=== PATIENT | male | born 1965 | race Caucasian/White ===

== ENCOUNTER 2025-07-21 08:03 | Emergency (ER) | payer MEDICAID, OTHER ==
[~2025-07-21] VITALS: Ht 175.3 cm; Wt 80.3 kg
--- NOTE | 2025-07-21 08:14 | ED.PDOC ---
History of Present Illness HPI Comments 59-year-old male brought in by EMS presents with a chief complaint of leg burning sensation x 1 hour. Per EMS, patient endorsed sitting in "biodegradable bell cleaner or something like that" and is now reporting burning sensation to his right LLE. Patient has no signs of discoloration, rash, wounds, or lesions. 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: Driver Supervisor Medication Refill: Ran out of Medication Past Medical History PAST MEDICAL HISTORY: Denies Surgical History (Other): NECK FUSION Family History Family History: Reviewed,noncontributory to illness Social History Smoker: Non-Smoker Alcohol: Denies ETOH Use Drugs: Denies Drug Use Lives In: Home Constitutional: denies: chills, diaphoresis, fatigue, fever, malaise, sweats, weakness, others EENTM: denies: blurred vision, double vision, ear bleeding, ear discharge, ear drainage, ear pain, ear ringing, eye pain, eye redness, hearing loss, mouth pain, mouth swelling, nasal discharge, nose bleeding, nose congestion, nose pain, photophobia, tearing, throat pain, throat swelling, voice changes, others Respiratory: denies: cough, hemoptysis, orthopnea, SOB at rest, shortness of breath, SOB with excertion, stridor, wheezing, others Cardiovascular: denies: chest pain, dizzy spells, diaphoresis, Dyspnea on exertion, edema, irregular heart beat, left arm pain, lightheadedness, palpitations, PND, syncope, others Gastrointestinal: denies: abdomen distended, abdominal pain, blood streaked bowels, constipated, diarrhea, dysphagia, difficulty swallowing, hematemesis, melena, nausea, poor appetite, poor fluid intake, rectal bleeding, rectal pain, vomiting, others Genitourinary: denies: burning, dysuria, flank pain, frequency, hematuria, incontinence, penile discharge, penile sore, pain, testicle pain, testicle swelling, urgency, others Neurological: denies: dizziness, fainting, headache, left sided numbness, left sided weakness, numbness, paresthesia, pre-existing deficit, right sided numbness, right sided weakness, seizure, speech problems, tingling, tremors, weakness, others Musculoskeletal: denies: back pain, gout, joint pain, joint swelling, muscle pain, muscle stiffness, neck pain, others Integumetry: reports: others (SKIN BURNING SENSATION); denies: bruises, change in color, change in hair/nails, dryness, laceration, lesions, lumps, rash, wounds Allergic/Immunocompromised: denies: Difficulty Healing, Frequent Infections, Hives, Itching, others Hematologic/Lymphatic: denies: anemia, blood clots, easy bleeding, easy bruising, swollen glands, others Endocrine: denies: excessive hunger, excessive sweating, excessive thirst, excessive urination, flushing, intolerance to cold, intolerance to heat, unexplained weight gain, unexplained weight loss, others Psychiatric: denies: anxiety, bipolar disorder, depression, hopeless, panic disorder, schizophrenia, sleepless, suicidal, others All Other Systems: Reviewed and Negative Physical Exam General Appearance: Moderate Distress, Normal HEENT: Normal ENT Inspection, Pharynx Normal, TMs Normal Neck: Full Range of Motion, Non-Tender, Normal, Normal Inspection Respiratory: Chest Non-Tender, Lungs Clear, No Accessory Muscle Use, No Respiratory Distress, Normal Breath Sounds Cardiovascular: No Edema, No JVD, No Murmur, No Gallop, Normal Peripheral Pulses, Regular Rate/Rhythm Breast Exam: Deferred Gastrointestinal: No Organomegaly, Non Tender, No Pulsatile Mass, Normal Bowel Sounds, Soft Genitalia: Deferred Pelvic: Deferred Rectal: Deferred Extremities: No calf tenderness, Normal capillary refill, Normal inspection, Normal range of motion, Non-tender, No pedal edema Musculoskeletal : Apperance: Normal Neurologic: Alert, presales engineer II-XII nml as Tested, No Motor Deficits, Normal Affect, Normal Mood, No Sensory Deficits Cerebellar Function: Normal Reflexes: Normal Skin: Dry, Normal Color, Warm Peripheral Pulses: 3+ Radial (R), 3+ Radial (L) Lymphatic: No Adenopathy Was a procedure done? Was a procedure done?: No Differential Dx Considerations may include: Electrolyte imbalance X-Ray, Labs, Meds, VS Vital Signs Date Time Temp Pulse Resp B/P (MAP) Pulse Ox O2 Delivery O2 Flow Rate FiO2 07/21/25 09:20 98.1 83 18 107/69 (82) 98 98.1 07/21/25 08:10 98.0 95 18 116/76 99 98.0 Lab Test 07/21/25 08:24 07/21/25 08:21 07/21/25 08:18 Range/Units Sodium Level 134 L 136-145 mmol/L Potassium Level 4.9 3.5-5.1 mmol/L Chloride Level 101 98-107 mmol/L Carbon Dioxide Level 25 20-31 mmol/L Anion Gap 8 5-15 Blood Urea Nitrogen 15 9-23 mg/dL Creatinine 1.16 0.700-1.30 mg/dL Glomerular Filtration Rate Calc 73 >90 mL/min BUN/Creatinine Ratio 12.9 10.0-20.0 Serum Glucose 468 *H 74-106 mg/dL Calcium Level 9.5 8.7-10.4 mg/dL POC Glucose 451 *H 526 *H 70-106 mg/dl Current Medications Medications (Trade) Dose Ordered Sig/Imani Route Start Time Stop Time Status Last Admin Insulin Human Regular (InsuLIN R) 10 units ONCE ONCE IV 07/21/25 08:30 07/21/25 08:31 DC 07/21/25 09:18 Sodium Chloride 1,000 ml @ 1,000 mls/hr Q1H ONCE IV 07/21/25 08:30 07/21/25 09:29 DC 07/21/25 09:10 Patient alert. Muscle cramps. Vitals stable. Answering questions. Ambulating. Possible heat exhaustion. No acute process. No leg swelling. No chest pain Shortness a breath. Blood sugar elevated. Was given insulin. Establish intravenous access. Was given fluids. Explained to the patient. Was told to follow up with his primary care physician. Was told to come back if there is any problem. Time of 1ST Reevaluation: 08:36 Reevaluation 1ST: Improved Patient Education/Counseling: Diagnosis, Treatment, Need For Follow Up Family Education/Counseling: No Family Present SEPSIS Sepsis Screen Vital Signs Date Time Temp Pulse Resp B/P (MAP) Pulse Ox O2 Delivery O2 Flow Rate FiO2 07/21/25 09:20 98.1 83 18 107/69 (82) 98 98.1 07/21/25 08:10 98.0 95 18 116/76 99 98.0 Medications Medications Dose Ordered Sig/Imani Route Start Time Stop Time Status Last Admin Dose Admin Insulin Human Regular 10 units ONCE ONCE IV 07/21/25 08:30 07/21/25 08:31 DC 07/21/25 09:18 Sodium Chloride 1,000 ml @ 1,000 mls/hr Q1H ONCE IV 07/21/25 08:30 07/21/25 09:29 DC 07/21/25 09:10 Departure 1 Departure Time of Disposition: 08:20 Impression: Primary Impression: Uncontrolled diabetes mellitus Qualified Codes: E13.65 - Other specified diabetes mellitus with hyperglycemia Additional Impression: Heat exhaustion Qualified Codes: T67.5XXA - Heat exhaustion, unspecified, initial encounter Disposition: HOME / SELF CARE / HOMELESS Condition: Good Discharged With: Self Critical Care Note Critical Care Time?: No Stability Stability form required: No Heart Score Heart Score: Heart Score Response (Comments) Value History N/A 0 EKG N/A 0 Age N/A 0 Risk Factors N/A 0 Troponin N/A 0 Total 0 I personally scribed for VERO SANDERS MD ([email or web address]) on 07/21/25 at 08:14. Electronically submitted by Roberto Huston ([email or web address]). VERO SANDERS MD Jul 21, 2025 08:14
[2025-07-21 08:57] LABS: Chloride 101 mmol/L (98-107); Potassium 4.9 mmol/L (3.5-5.1)
[2025-07-21 08:58] LABS: Anion Gap 8 (5-15); Calcium 9.5 mg/dL (8.7-10.4); Carbon Dioxide 25 mmol/L (20-31)
[2025-07-21 09:00] LABS: Sodium 134 mmol/L (136-145)
[2025-07-21 09:03] LABS: BUN/Creatinine Ratio 12.9 (10.0-20.0); Blood Urea Nitrogen 15 mg/dL (9-23)
[2025-07-21 09:09] LABS: Glucose 468 mg/dL (74-106)
[2025-07-21] MEDS: SODIUM CHLORIDE 0.9% 1,000 ML IV ONE (09:10)
[2025-07-21] MEDS: InsuLIN REG 1unit/0.01ml Soln (100units/ml) IV ONE (09:18)
[2025-07-21 09:20] VITALS: BP 107/69; PULSE 83; RESP 18; TEMP 98.1; O2SAT 98
== END 2025-07-21 10:40 | disposition home or self-care (01) ==
LOC: ER 08:03 → EDBD 08:03 → ER 10:40
DX: E11.65 Type 2 diabetes mellitus with hyperglycemia (principal); T67.5XXA Heat exhaustion, unspecified, initial encounter; X30.XXXA Exposure to excessive natural heat, initial encounter; Y93.89 Activity, other specified; Y92.89 Other specified places as the place of occurrence of the external cause; Y99.8 Other external cause status
CPT/HCPCS: 36415; 80048; 82947; 96361; 96374; 99283; J1815; J7030; 82962

== ENCOUNTER 2025-07-24 19:34 | Emergency (ER) | payer MEDICAID ==
[~2025-07-24] VITALS: Ht 180.3 cm; Wt 89.8 kg
[2025-07-24 20:36] VITALS: BP 115/68; PULSE 85; RESP 16; TEMP 98.7; O2SAT 98
--- NOTE | 2025-07-24 20:46 | ED.PDOC ---
Musculoskeletal HPI Comments 59 year old male presents to ER with complaints of right knee pain x 1 day. Patient presents VIA EMS with PMH significant for chronic right knee pain, reports he's been experiencing worsening right knee pain x 1 day that started while getting off the bus today. He rates his current pain a 10/10 to right knee and denies use of medications for current symptoms. Notes he is able to walk but presents to ER in wheelchair, in no distress. Denies fever, skin changes, calf pain, falls or any further symptoms/complaints Chief Complaint: Lower Extremity Time Seen by MD: 19:50 Primary Care Provider: UNKNOWN Reviewed Notes: Nurses Notes, Medications, Allergies Allergies: Coded Allergies: NO KNOWN ALLERGIES (Unverified , 07/21/25) Home Meds Active Scripts Acetaminophen (Acetaminophen) 500 Mg Tab, 500 MG PO Q4HPRN, #30 TAB 0 Refills Prov:ORION ROBB 07/24/25 Information Source: Patient Mode of Arrival: EMS Past Medical History Past Medical History (Other): Chronic right knee pain Cervical spine fracture Surgical History: Denies all surgeries Family History Family History: Unknown Social History Smoker: Non-Smoker Alcohol: Denies ETOH Use Drugs: Denies Drug Use Lives In: Home Constitutional: denies: chills, diaphoresis, fatigue, fever, malaise, sweats, weakness, others EENTM: denies: blurred vision, double vision, ear bleeding, ear discharge, ear drainage, ear pain, ear ringing, eye pain, eye redness, hearing loss, mouth pain, mouth swelling, nasal discharge, nose bleeding, nose congestion, nose pain, photophobia, tearing, throat pain, throat swelling, voice changes, others Respiratory: denies: cough, hemoptysis, orthopnea, SOB at rest, shortness of b reath, SOB with excertion, stridor, wheezing, others Cardiovascular: denies: chest pain, dizzy spells, diaphoresis, Dyspnea on exertion, edema, irregular heart beat, left arm pain, lightheadedness, palpitations, PND, syncope, others Gastrointestinal: denies: abdomen distended, abdominal pain, blood streaked bowels, constipated, diarrhea, dysphagia, difficulty swallowing, hematemesis, melena, nausea, poor appetite, poor fluid intake, rectal bleeding, rectal pain, vomiting, others Genitourinary: denies: burning, dysuria, flank pain, frequency, hematuria, incontinence, penile discharge, penile sore, pain, testicle pain, testicle swelling, urgency, others Neurological: denies: dizziness, fainting, headache, left sided numbness, left sided weakness, numbness, paresthesia, pre-existing deficit, right sided numbness, right sided weakness, seizure, speech problems, tingling, tremors, weakness, others Musculoskeletal: reports: others (As stated in HPI) Integumetry: denies: bruises, change in color, change in hair/nails, dryness, laceration, lesions, lumps, rash, wounds, others Allergic/Immunocompromised: denies: Difficulty Healing, Frequent Infections, Hives, Itching, others Hematologic/Lymphatic: denies: anemia, blood clots, easy bleeding, easy bruising, swollen glands, others Endocrine: denies: excessive hunger, excessive sweating, excessive thirst, excessive urination, flushing, intolerance to cold, intolerance to heat, unexpla ined weight gain, unexplained weight loss, others Psychiatric: denies: anxiety, bipolar disorder, depression, hopeless, panic disorder, schizophrenia, sleepless, suicidal, others Physical Exam General Appearance: No Apparent Distress HEENT: PERRL/EOMI Neck: Full Range of Motion, Non-Tender, Normal Respiratory: Chest Non-Tender, Lungs Clear, No Accessory Muscle Use, No Respiratory Distress, Normal Breath Sounds Cardiovascular: No Murmur, No Gallop, Regular Rate/Rhythm Breast Exam: Deferred Gastrointestinal: NOT DONE Genitalia: Deferred Pelvic: Deferred Rectal: Deferred Extremities: Normal capillary refill, Normal range of motion Musculoskeletal : Extremity Location: Knee (Slight TTP to right anterior knee noted. No deformity/erythema/skin changes noted. Steady gait appreciated.) Neurologic: Alert, crew member II-XII nml as Tested, No Motor Deficits, Normal Affect, Normal Mood, No Sensory Deficits Cerebellar Function: Normal Reflexes: Normal Skin: Dry, Normal Color, Warm Peripheral Pulses: 2+ femoral (R), 2+ femoral (L), 2+ dorsalis pedis (R), 2+ dorsalis pedis (L), 2+ Radial (R), 2+ Radial (L), 2+ Brachial (R), 2+ Brachial (L) Lymphatic: No Adenopathy Was a procedure done? Was a procedure done?: No Sedation Sedation?: No Differential Diagnosis EXT Differential Diagnosis: Deep Vein Thrombosis, Fracture, Dislocation, Neurovascular injury X-Ray, Labs, Meds, VS Vital Signs Date Time Temp Pulse Resp B/P (MAP) Pulse Ox O2 Delivery O2 Flow Rate FiO2 07/24/25 20:36 Room Air* 0 21 07/24/25 20:36 98.7 85 16 115/68 (84) 98 98.7 07/24/25 19:40 98.7 85 16 115/68 98 98.7 PATIENT: SERVANDO BARBERT: [id number]: [id number] : 1965 LOC: ER ROOM / BED: / AGE / SEX: 59 / M ADM STATUS: REG ER SERVICE 50 ORDERING PHYSICIAN: ORION ROBB PROCEDURE(s): RKN3 - R KNEE 3V XRAY REASON: right knee pain ORDER NUMBER(s): [id number], ACCESSION NUMBER(s): [id number] EXAM: XY R KNEE 3V XRAY REASON FOR EXAM: right knee pain TECHNIQUE: AP, lateral, and oblique views of the right knee are submitted for review. COMPARISON: XY R KNEE 3V XRAY on DOS: 06/27/25 FINDINGS: The bones demonstrate grossly normal mineralization. There is no acute fracture or dislocation. There is patellar tendon enthesopathy with fragmentation. There is no significant knee effusion. The soft tissues are grossly unremarkable. IMPRESSION: No acute fracture or dislocation. ATED BY: FLY PATTERSON MD DICTATED DATE/TIME: 07/24/252053 SIGNED BY: FLY PATTERSON MD SIGNED DATE/TIME: 07/24/252053 CC: Right knee x-ray reviewed Patient neurovascularly intact Advised on elevation and alternate ice on/off as needed for pain Advised to follow up with PCP and orthopedics in 1-2 days Patient verbalized understanding and agreeable with current plan of care Advised to return to ER immediately if symptoms worsen Images Reviewed?: Images reviewed and evaluated by me Time of 1ST Reevaluation: 20:20 Reevaluation 1ST: N/A Patient Education/Counseling: Diagnosis, Treatment, Prognosis, Need For Follow Up Family Education/Counseling: No Family Present Departure 1 Departure Time of Disposition: 20:45 Impression: Primary Impression: Chronic pain of right knee Disposition: HOME / SELF CARE / HOMELESS Condition: Stable e-Prescriptions Acetaminophen (Acetaminophen) 500 Mg Tab 500 MG PO Q4HPRN, #30 TAB 0 Refills Prov: ORION ROBB 07/24/25 Discharged With: Friend Critical Care Note Critical Care Time?: No Stability Stability form required: No Heart Score Heart Score: Heart Score Response (Comments) Value History N/A 0 EKG N/A 0 Age N/A 0 Risk Factors N/A 0 Troponin N/A 0 Total 0 ORION ROBB Jul 24, 2025 20:46
--- NOTE | 2025-07-24 20:57 | DVH ---
EXAM: XY R KNEE 3V XRAY REASON FOR EXAM: right knee pain TECHNIQUE: AP, lateral, and oblique views of the right knee are submitted for review. COMPARISON: XY R KNEE 3V XRAY on DOS: 06/27/25 FINDINGS: The bones demonstrate grossly normal mineralization. There is no acute fracture or dislocat ion. There is patellar tendon enthesopathy with fragmentation. There is no significant knee effusion. The soft tissues are grossly unremarkable. IMPRESSION: No acute fracture or dislocation.
[2025-07-24] MEDS ORDERED: ACET500T58 PO (21:04)
== END 2025-07-24 21:25 | disposition home or self-care (01) ==
LOC: EDBD 19:34 → ER 19:34
DX: G89.29 Other chronic pain (principal); M25.561 Pain in right knee; Z79.899 Other long term (current) drug therapy
CPT/HCPCS: 73562

== ENCOUNTER 2025-07-27 17:38 | Emergency (ER) | payer MEDICAID ==
[~2025-07-27] VITALS: Ht 175.3 cm; Wt 72.7 kg
[~2025-07-27 17:38] MED LIST: ACET500T58 PO
--- NOTE | 2025-07-27 18:57 | ED.PDOC ---
Back pain HPI HPI Comments 59-year-old homeless male presents to the ED chief complaint chronic right leg pain. Patient was seen here several days ago for same complaint we will sent pain medication to the pharmacy however has not picked it up yet. 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 Denies any new injury, requesting pain medicine patient states has a referral for pain management from his primary past no means again areas requesting a social insurance analyst however it is the weekend we will speak to the charge and house sutures so we can do for patient. Denies numbness, weakness, fever, chills. Chief Complaint: Lower Extremity Time Seen by MD: 18:07 Primary Care Provider: UNKNOWN Reviewed Notes: Nurses Notes, Medications, Allergies Allergies: Coded Allergies: NO KNOWN ALLERGIES (Unverified , 07/21/25) Home Meds Active Scripts Acetaminophen (Acetaminophen) 500 Mg Tab, 500 MG PO Q4HPRN, #30 TAB 0 Refills Prov:ORION ROBB 07/24/25 Information Source: Patient Mode of Arrival: EMS Past Medical History PAST MEDICAL HISTORY: Denies Surgical History: Denies all surgeries Family History Family History: Unknown Social History Smoker: Non-Smoker Alcohol: Denies ETOH Use Drugs: Denies Drug Use Lives In: Home All Other Systems: Reviewed and Negative (see hpi) Physical Exam General Appearance: No Apparent Distress, Normal HEENT: Pharynx Normal Neck: Full Range of Motion, Non-Tender Respiratory: Chest Non-Tender, Lungs Clear, No Accessory Muscle Use, No Respiratory Distress, Normal Breath Sounds Cardiovascular: No Edema, No JVD, No Murmur, No Gallop, Normal Peripheral Pulses, Regular Rate/Rhythm Breast Exam: Deferred Gastrointestinal: Non Tender, Soft Genitalia: Deferred Pelvic: Deferred Rectal: Deferred Extremities: No calf tenderness, Normal capillary refill, Normal inspection, Normal range of motion, Non-tender, No pedal edema Musculoskeletal : Location: Right Extremity Location: Knee (Tenderness over tire knee no noted ecchymosis abrasions lesions or lacerations negative Gayatri negative drawer exam no ballottement positive pedal pulse strength sensory motion intact.) Apperance: Normal Neurologic: Alert, No Motor Deficits, Normal Affect, Normal Mood, No Sensory Deficits Cerebellar Function: Normal Reflexes: Normal Skin: Dry, Normal Color, Warm Lymphatic: No Adenopathy Was a procedure done? Was a procedure done?: No Back Pain Differential Dx Differential Diagnosis: Fracture, Musculoskeletal Pain X-Ray, Labs, Meds, VS Vital Signs Date Time Temp Pulse Resp B/P (MAP) Pulse Ox O2 Delivery O2 Flow Rate FiO2 07/27/25 17:40 97.6 72 17 132/79 96 97.6 X-Ray, Labs, Meds, VS Comment Patient given Toradol 60 mg IM Percocet 10 mg p.o. and Decadron 10 mg IM reports improvement in pain function requesting discharge at this time. Patient is requesting or ride through P to go home. Process started. Advised to picking tech his prescribed medicine that was sent to the pharmacy several days ago. Advised to follow up with his referral to pain management. Advised on ER return patient indicates understanding agrees with discharge plan of care. Time of 1ST Reevaluation: 18:20 Reevaluation 1ST: Unchanged Time of 2ND Reevaluation: 18:56 Reevaluation 2ND: Improved Patient Education/Counseling: Diagnosis, Treatment, Need For Follow Up Family Education/Counseling: No Family Present SEPSIS Sepsis Screen Date sepsis recognized/suspect: Jul 27, 2025 Time Sepsis recognized/suspect: 1744 Recent Procedure: No On Antibiotic Therapy: No Respiratory Rate >20: No Heart Rate >90: No Temp<36 C (96.8 F) or >38.3 C: No SBP <90 or MAP <65 mmHG: No New Acute Mental Status Change: No Is the patient on CPAP, BIPAP,: No Vital Signs Date Time Temp Pulse Resp B/P (MAP) Pulse Ox O2 Delivery O2 Flow Rate FiO2 07/27/25 17:40 97.6 72 17 132/79 96 97.6 Departure 1 Departure Time of Disposition: 18:56 Impression: Primary Impression: Chronic pain of right knee Disposition: 01 HOME / SELF CARE / HOMELESS Condition: Stable Discharged With: Self Critical Care Note Critical Care Time?: No Stability Stability form required: BLAINE Allred Jul 27, 2025 18:57
[2025-07-27] MEDS: OXYCODONE W/ ACETAMINOPHEN 5/325MG TABLET PO ONE (19:11)
[2025-07-27] MEDS: KETOROLAC TROMETH 60MG/2ML VIAL IM ONE (19:19)
[2025-07-27 19:20] VITALS: TEMP 98.7
[2025-07-27 22:30] VITALS: BP 116/80; PULSE 86; RESP 98; O2SAT 98
== END 2025-07-27 19:48 | disposition home or self-care (01) ==
LOC: EDBD 17:38 → ER 17:38
DX: G89.29 Other chronic pain (principal); M79.604 Pain in right leg; Z59.00 Homelessness unspecified
CPT/HCPCS: 96372; 99284; J1100; J1885

== ENCOUNTER 2025-07-30 13:11 | Emergency (ER) | payer MEDICAID ==
[~2025-07-30] VITALS: Ht 177.8 cm; Wt 79.5 kg
[2025-07-30 13:16] VITALS: BP 132/70; PULSE 90; RESP 17; TEMP 98.2; O2SAT 96
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
[2025-07-30] MEDS ORDERED: METH-1181 PO (15:21)
[2025-07-30] MEDS ORDERED: NAPR-746 PO (15:21)
== END 2025-07-30 15:24 | disposition home or self-care (01) ==
LOC: ER 13:11 → EDBD 13:11 → ER 15:24
DX: R68.84 Jaw pain (principal); E11.9 Type 2 diabetes mellitus without complications; Y08.89XA Assault by other specified means, initial encounter; Y93.89 Activity, other specified; Y92.89 Other specified places as the place of occurrence of the external cause; Y99.8 Other external cause status
CPT/HCPCS: 70450; 70486

== ENCOUNTER 2025-07-30 17:11 | Emergency (ER) | payer MEDICAID ==
[~2025-07-30] VITALS: Ht 175.3 cm; Wt 80.3 kg
[~2025-07-30 17:11] MED LIST changes: +METH-1181 PO; +NAPR-746 PO
[2025-07-30 17:13] VITALS: BP 129/82; PULSE 83; RESP 16; TEMP 97.9; O2SAT 97
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
== END 2025-07-30 19:08 | disposition home or self-care (01) ==
LOC: ER 17:11
DX: Z00.00 Encounter for general adult medical examination without abnormal findings (principal); G89.29 Other chronic pain; Z79.899 Other long term (current) drug therapy

== ENCOUNTER 2025-08-09 19:21 | Inpatient (IN) | payer MEDICAID ==
[~2025-08-09] VITALS: Ht 180.3 cm; Wt 88.1 kg
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
[2025-08-09 20:36] LABS: Hematocrit 36.8 % (41.0-53.0); Hemoglobin 12.5 g/dL (13.5-17.5); Mean Corpuscular Hemoglobin 28.0 pg (28.0-32.0); Mean Corpuscular Volume 82.4 fL (80.0-100.0); Nucleated Red Blood Cells % 0.2 %
[2025-08-09 20:43] LABS: Potassium 4.2 mmol/L (3.5-5.1)
[2025-08-09 20:44] LABS: Anion Gap 13 (5-15); Calcium 9.4 mg/dL (8.7-10.4); Carbon Dioxide 25 mmol/L (20-31)
[2025-08-09 20:46] LABS: Chloride 97 mmol/L (98-107); Sodium 135 mmol/L (136-145)
[2025-08-09 20:49] LABS: BUN/Creatinine Ratio 10.5 (10.0-20.0); Blood Urea Nitrogen 11 mg/dL (9-23)
[2025-08-09 20:57] LABS: Glucose 485 mg/dL (74-106)
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
[2025-08-09] MEDS ORDERED: MORPHINE SULFATE INJ 2 MG/ml SYRG IV PRN (22:30)
[2025-08-09] MEDS ORDERED: ACETAMINOPHEN 325 MG TAB PO PRN (22:30)
[2025-08-09] MEDS ORDERED: DEXTROSE (50%) 50ML SYRG IV PRN (22:30)
[2025-08-09] MEDS ORDERED: ONDANSETRON HCL 4 MG/2 ML VIAL IV PRN (22:30)
[2025-08-09] MEDS: SODIUM CHLORIDE 0.9% 1,000 ML IV ONE (22:45)
[2025-08-09] MEDS: InsuLIN REG 1unit/0.01ml Soln (100units/ml) SC ONE (23:07)
[2025-08-09 23:13] VITALS: PULSE 75; RESP 18; O2SAT 98
[2025-08-09 23:20] LABS: Base Excess 0.1 mmol/L (-2.0-3.0)
[2025-08-10] VITALS (12 sets, daily range): BP systolic 104–133; BP diastolic 56–88; PULSE 65–82; RESP 10–23; TEMP 96.5–98.1; O2SAT 95–100
[2025-08-10 00:11] LABS: Alanine Aminotransferase 13.0 U/L (7-40); Albumin 4.2 g/dL (3.2-4.8); Bilirubin, Direct 0.2 mg/dL (<0.3); Bilirubin, Total 0.6 mg/dL (0.2-1.0); Total Protein 7.3 g/dL (5.7-8.2)
[2025-08-10 00:15] LABS: Alkaline Phosphatase 144.0 U/L (46-116)
[2025-08-10] MEDS: SODIUM CHLORIDE 0.9% 1,000 ML IV ONE (00:38)
[2025-08-10] MEDS: CLINDAMYCIN 300MG IV 50 ML IV ONE (00:40)
--- NOTE | 2025-08-10 00:40 | DVH ---
CLINICAL INDICATION: Right knee pain TECHNIQUE: XY R KNEE 3V XRAY Comparison: XY R KNEE 3V XRAY on DOS: 07/24/25, XY R KNEE 3V XRAY on DOS: 06/27/25 FINDINGS/IMPRESSION: : Diffuse generalized osseous demineralization. Moderate degenerative changes include tricompartmental joint space narrowing and marginal osteophytos is. There is no evidence of acute fracture or dislocation. Soft tissues are unremarkable.
[2025-08-10] MEDS: ACCU-CHEK COMFORT CURVE STRIP VI SCH ×2 (00:41→22:00)
[2025-08-10] MEDS: CLINDAMYCIN 300MG IV 50 ML IV SCH (00:42)
[2025-08-10] MEDS: InsuLIN REG 1unit/0.01ml Soln (100units/ml) SC SCH (00:42)
--- NOTE | 2025-08-10 00:56 | DVH ---
CHEST RADIOGRAPH Indication: Rule out PNA Technique: Single frontal view of the chest was obtained COMPARISON: XY CHEST XRAY 1 VIEW on DOS: 09/20/24, XY CHEST PORTABLE on DOS: 09/16/24, CHEST PORTABLE on DOS: 12/18/22, CXRP on DOS: 12/18/22, CHEST PORTABLE on DOS: 10/24/22 FINDINGS: Lines and Tubes: None Lungs: Clear Pleura: No effusion. No pneumothorax. Cardiomediastinal contours: Unremarkable Bones: Unremarkable. Spinal fixation hardware. IMPRESSION: 1. No acute disease.
[2025-08-10] MEDS: GABAPENTIN 100 MG CAP PO ONE (02:28)
[2025-08-10] MEDS: HYDROcodone-ACET 5/325MG TAB PO PRN (02:29)
[2025-08-10] MEDS: SODIUM CHLORIDE 0.9% 1,000 ML IV SCH (02:29)
--- NOTE | 2025-08-10 02:45 | DVH ---
Bilateral lower extremity venous duplex Clinical History: Bilateral leg pain Comparison: None Technique: Duplex Doppler evaluation of the deep venous systems of both lower extremities from the common femora l veins to the popliteal veins including color Doppler and spectral/pulsed waveform analysis was perf ormed. Findings: RIGHT SIDE: The common femoral vein demonstrates appropriate compressibility and waveform variability. There is compressibility/patency of the great saphenous vein at the proximal thigh. The femoral vein demonstrates appropriate compressibility and waveform variability. The deep femoral vein demonstrates appropriate compressibility and waveform variability. The popliteal vein demonstrates appropriate compressibility and waveform variability. There is normal compressibility at the tibioperoneal trunk. LEFT SIDE: The common femoral vein demonstrates appropriate compressibility and waveform variability. There is compressibility/patency of the great saphenous vein at the proximal thigh. The femoral vein demonstrates appropriate compressibility and waveform variability. The deep femoral vein demonstrates appropriate compressibility and waveform variability. The popliteal vein demonstrates appropriate compressibility and waveform variability. There is normal compressibility at the tibioperoneal trunk. Impression: 1. No right or left femoropopliteal venous thrombosis.
[2025-08-10] MEDS ORDERED: GABA-1250 PO (03:14)
[2025-08-10] MEDS ORDERED: CEPH500C PO (03:14)
[2025-08-10] MEDS ORDERED: AUG875T PO (03:14)
[2025-08-10 04:18] LABS: Hematocrit 33.6 % (41.0-53.0); Hemoglobin 11.8 g/dL (13.5-17.5); Mean Corpuscular Hemoglobin 28.5 pg (28.0-32.0); Mean Corpuscular Volume 80.7 fL (80.0-100.0); Nucleated Red Blood Cells % 0.0 %
[2025-08-10 04:34] LABS: INR 0.91 (0.9-1.15); Partial Thromboplastin Time 25.1 SEC (24.5-34.5); Prothrombin Time 9.7 sec (9.3-11.8)
[2025-08-10 04:35] LABS: Albumin 3.7 g/dL (3.2-4.8); Anion Gap 12 (5-15); BUN/Creatinine Ratio 7.7 (10.0-20.0); Carbon Dioxide 24 mmol/L (20-31); Chloride 105 mmol/L (98-107); Magnesium 1.8 mg/dL (1.6-2.6); Sodium 141 mmol/L (136-145); Total Protein 6.3 g/dL (5.7-8.2)
[2025-08-10 04:36] LABS: Cholesterol 154 mg/dL (< 200); HDL Cholesterol 45 mg/dL (40-59)
[2025-08-10 04:48] LABS: Alanine Aminotransferase < 9 U/L (7-40); Alkaline Phosphatase 136 U/L (46-116); Bilirubin, Total 0.3 mg/dL (0.2-1.0); Blood Urea Nitrogen 6 mg/dL (9-23); Calcium 8.6 mg/dL (8.7-10.4); Glucose 135 mg/dL (74-106); Potassium 3.2 mmol/L (3.5-5.1); Triglycerides 158 mg/dL (< 150)
[2025-08-10 05:30] LABS: Lipase 80 U/L (12-53)
[2025-08-10] MEDS: GABAPENTIN 100 MG CAP PO SCH (05:33)
[2025-08-10] MEDS: POTASSIUM EFFERVESENT TAB 25 MEQ GT ONE (06:24)
[2025-08-10] MEDS: LISINOPRIL 5 MG TAB PO SCH (09:59)
[2025-08-10] MEDS: ENOXAPARIN SOD 40 MG/0.4 ML SYRINGE SC SCH (10:00)
[2025-08-10] MEDS: CLOTRIMAZOLE 1 % CREAM 15GM TOP SCH (10:00)
--- NOTE | 2025-08-10 12:14 | DVH ---
CLINICAL HISTORY: Questionable carotid thrombus TECHNIQUE: Thapa-scale, Color and Duplex Doppler imaging of the bilateral carotid systems was performe d. COMPARISON: None Findings: Right Carotid system: There is no plaque present in the right carotid system. Left Carotid system: There is no plaque present in the left carotid system. The following flow velocities were obtained (cm/sec). Right Carotid System: ICA PSV: 85 cm/sec ICA PDV: 32 cm/sec ICA/CCA Ratio: 1.3 Left Carotid System: ICA PSV: 79 cm/sec ICA PDV: 30 cm/sec ICA/CCA Ratio: 1.2 The right and left common carotid and external carotid arteries are patent. There is antegrade flow i n both vertebral arteries and external carotid arteries. IMPRESSION: NORMAL RIGHT CAROTID SYSTEM. NORMAL LEFT CAROTID SYSTEM. Estimation of carotid stenosis is based on velocity parameters that correlate the residual internal c arotid diameter with that of the more distal vessel in accordance with the [place] Symptomatic Carotid Endarterectomy Trial (NASCET).
--- NOTE | 2025-08-10 12:55 | DVH ---
EXAM: US BILAT LOW EXT ART DUPLEX INDICATION: STenosis TECHNIQUE: Grayscale and color Doppler sonographic imaging evaluation of the right and left lower ext remity arterial system was performed COMPARISON: None available at the time of dictation. FINDINGS: RIGHT LOWER EXTREMITY ARTERIES: Common femoral artery: 131 cm/s, triphasic Deep femoral artery: 79 cm/s, triphasic Proximal femoral artery: 118 cm/s, triphasic Mid femoral artery: 88 cm/s, triphasic Distal femoral artery: 98 cm/s, triphasic Popliteal artery: 72 cm/s, triphasic Posterior tibial artery: 52 cm/s, triphasic Dorsalis pedis artery: 102 cm/s, triphasic LEFT LOWER EXTREMITY ARTERIES: Common femoral artery: 127 cm/s, triphasic Deep femoral artery: 108 cm/s, triphasic Proximal femoral artery: 110 cm/s, triphasic Mid femoral artery: 83 cm/s, triphasic Distal femoral artery: 76 cm/s, triphasic Popliteal artery: 65 cm/s, triphasic Posterior tibial artery: 20 cm/s, triphasic Dorsalis pedis artery: 89 cm/s, triphasic REFERENCE VALUES: Normal velocity ranges (in cm/sec) are as follows: ENERGY PROFESSIONAL 95-140, SFA 75-105, popliteal 54-84, tibial 41-81 cm/sec. Stenosis categories: 1.5-2.0 x normal velocity = 30-49%, 2.0-4.0 x normal velocity = 50-75%, >4.0 x normal velocity = >75%. IMPRESSION: 1. No sonographic evidence of a lower extremity arterial occlusion. Velocities as above.
[2025-08-10] MEDS: POTASSIUM CHL 20MEQ/100ML 100 ML IV ONE (13:06)
--- NOTE | 2025-08-10 18:11 | DVHPN2 ---
Assessment/Plan Assessment/Plan progress note 59 M with IDDM, HTN, HLD, BPH severe spinal spondylosis s/p fusion, admitted for hyperglycemia and numbness concerning for HHS seen today. started on basal bolus insulin, gabapentin, rash around genitals likely soraya physical exam aox3 comfortable on RA clear breath sounds s1 s2 rrr abdomen soft no LE edema inguinal erythema with satellite lesion labs ekg imaging reviewed assessment and plan IDDM w hyperglycemia ruled out DKA HHS UTI intertrig candidiasis hx of abscesses HTN HLD s/p spinal cerv fusion celulitis? basal bolus insulin start jonah Diflucan and clotrimazole PT ceft and clinda diet diabetic dvt ppx lovenox full code Plan discussed with: Patient Date of Service: Aug 10, 2025 Billing Provider: JODI BYRD MD Common Visit Codes: [id number] INP/OBS CARE(HIGH) JODI BYRD MD Aug 10, 2025 18:11
[2025-08-10] MEDS: POTASSIUM EFFERVESENT TAB 25 MEQ PO ONE (18:30)
[2025-08-10] MEDS: INSULIN LANTUS (GLARGINE) 1 /0.01ml (100units/ml) SC SCH (21:18)
[2025-08-11] VITALS (7 sets, daily range): BP systolic 100–123; BP diastolic 63–82; PULSE 65–81; RESP 16–21; TEMP 97.5–98.9; O2SAT 96–99
[2025-08-11] MEDS ORDERED: MORPHINE SULFATE 4 MG/ML SYR/VIAL IV PRN (02:00)
[2025-08-11] MEDS: INSULIN LISPRO (HUMAN) 100 UNITS/ML ML SC SCH ×3 (06:15→12:31)
[2025-08-11 07:54] LABS: Hematocrit 32.8 % (41.0-53.0); Hemoglobin 11.2 g/dL (13.5-17.5); Mean Corpuscular Hemoglobin 28.7 pg (28.0-32.0); Mean Corpuscular Volume 83.8 fL (80.0-100.0); Nucleated Red Blood Cells % 0.0 %
[2025-08-11 07:56] LABS: Chloride 104 mmol/L (98-107); Potassium 4.4 mmol/L (3.5-5.1); Sodium 139 mmol/L (136-145)
[2025-08-11 07:57] LABS: Anion Gap 10 (5-15); Carbon Dioxide 25 mmol/L (20-31)
[2025-08-11 08:00] LABS: Calcium 8.5 mg/dL (8.7-10.4)
[2025-08-11 08:02] LABS: BUN/Creatinine Ratio 12.4 (10.0-20.0); Blood Urea Nitrogen 11 mg/dL (9-23)
[2025-08-11 08:06] LABS: Glucose 242 mg/dL (74-106)
[2025-08-11] MEDS ORDERED: KETO2CRE4 TOP (16:32)
[2025-08-11] MEDS ORDERED: ACET-1881 PO (16:34)
[2025-08-11] MEDS ORDERED: MECL-90 PO (16:35)
[2025-08-11] MEDS ORDERED: METH-1181 PO (16:36)
[2025-08-11] MEDS ORDERED: INSU100I54 SC (16:38)
--- NOTE | 2025-08-11 19:03 | DVHPN2 ---
Assessment/Plan Assessment/Plan progress note 59 M with IDDM, HTN, HLD, BPH severe spinal spondylosis s/p fusion, admitted for hyperglycemia and numbness concerning for HHS seen today. titrate insulin, dc clinda. ss for recup vs snif physical exam aox3 comfortable on RA clear breath sounds s1 s2 rrr abdomen soft no LE edema inguinal erythema with satellite lesion labs ekg imaging reviewed assessment and plan IDDM w hyperglycemia ruled out DKA HHS UTI intertrig candidiasis hx of abscesses HTN HLD s/p spinal cerv fusion celulitis? basal bolus insulin start jonah Diflucan and clotrimazole PT ceft diet diabetic dvt ppx lovenox full code Plan discussed with: Patient My Orders Orders - JODI BYRD MD Procedure Category Date Status Time Insulin Lantus PHA 08/11/25 In Process (Glargine) (Lantus) 22:00 Insulin Lispro PHA 08/11/25 In Process (Human) (Humalog) 11:30 Date of Service: Aug 11, 2025 Billing Provider: JODI BYRD MD Common Visit Codes: [id number] INP/OBS CARE(HIGH) JODI BYRD MD Aug 11, 2025 19:03
[2025-08-11] MEDS: FLUCONAZOLE 100 MG TAB PO ONE (21:42)
[2025-08-11] MEDS: CLOTRIMAZOLE 1 % CREAM 15GM TOP SCH (21:43)
[2025-08-11] MEDS: INSULIN LANTUS (GLARGINE) 1 /0.01ml (100units/ml) SC SCH (21:45)
[2025-08-11] MEDS ORDERED: INSULIN LANTUS (GLARGINE) 1 /0.01ml (100units/ml) SC SCH (22:00)
[2025-08-12] VITALS (7 sets, daily range): BP systolic 110–121; BP diastolic 73–83; PULSE 70–82; RESP 13–19; TEMP 97.1–98.1; O2SAT 98–99
[2025-08-12] MEDS: INSULIN LISPRO (HUMAN) 100 UNITS/ML ML SC SCH (06:08)
[2025-08-12 06:39] LABS: Chloride 103 mmol/L (98-107); Potassium 4.5 mmol/L (3.5-5.1); Sodium 136 mmol/L (136-145)
[2025-08-12 06:40] LABS: Anion Gap 8 (5-15); Calcium 8.9 mg/dL (8.7-10.4); Carbon Dioxide 25 mmol/L (20-31)
[2025-08-12 06:45] LABS: BUN/Creatinine Ratio 8.4 (10.0-20.0)
[2025-08-12 06:47] LABS: Blood Urea Nitrogen 8 mg/dL (9-23); Glucose 246 mg/dL (74-106)
[2025-08-12] MEDS: FLUCONAZOLE 100 MG TAB PO SCH (09:45)
--- NOTE | 2025-08-12 18:25 | DVHPN2 ---
Assessment/Plan Assessment/Plan progress note 59 M with IDDM, HTN, HLD, BPH severe spinal spondylosis s/p fusion, admitted for hyperglycemia and numbness concerning for HHS seen today. titrate insulin, plan to dc for recup care. pt in the mean time physical exam aox3 comfortable on RA clear breath sounds s1 s2 rrr abdomen soft no LE edema inguinal erythema with satellite lesion labs ekg imaging reviewed assessment and plan IDDM w hyperglycemia ruled out DKA HHS UTI intertrig candidiasis hx of abscesses HTN HLD s/p spinal cerv fusion celulitis? gait disorder basal bolus insulin start jonah Diflucan and clotrimazole PT ceft diet diabetic dvt ppx lovenox full code Plan discussed with: Patient My Orders Orders - JODI BYRD MD Procedure Category Date Status Time Fluconazole Tablet PHA 08/12/25 In Process (Diflucan Tablet) 10:00 Clotrimazole 1% PHA 08/11/25 In Process Topical Cream 22:00 Gabapentin Capsule PHA 08/12/25 Logged (Neurontin Capsule) 22:00 Insulin Lantus PHA 08/12/25 Logged (Glargine) (Lantus) 22:00 Insulin Lispro PHA 08/13/25 Logged (Human) (Humalog) 07:00 Basic Metabolic Panel LAB 08/13/25 Verified 04:00 Date of Service: Aug 12, 2025 Billing Provider: JODI BYRD MD Common Visit Codes: [id number] INP/OBS CARE(HIGH) JODI YBRD MD Aug 12, 2025 18:25
[2025-08-12] MEDS: GABAPENTIN 100 MG CAP PO SCH (21:03)
[2025-08-12] MEDS: INSULIN LANTUS (GLARGINE) 1 /0.01ml (100units/ml) SC SCH (21:05)
[2025-08-13] VITALS (9 sets, daily range): BP systolic 110–128; BP diastolic 47–83; PULSE 66–91; RESP 16–20; TEMP 96.7–98.8; O2SAT 98–100
[2025-08-13] MEDS: INSULIN LISPRO (HUMAN) 100 UNITS/ML ML SC SCH (06:11)
[2025-08-13 06:22] LABS: Chloride 101 mmol/L (98-107); Potassium 4.2 mmol/L (3.5-5.1); Sodium 137 mmol/L (136-145)
[2025-08-13 06:23] LABS: Anion Gap 10 (5-15); Carbon Dioxide 26 mmol/L (20-31)
[2025-08-13 06:24] LABS: Calcium 9.3 mg/dL (8.7-10.4)
[2025-08-13 06:29] LABS: BUN/Creatinine Ratio 12.4 (10.0-20.0); Blood Urea Nitrogen 11 mg/dL (9-23)
[2025-08-13 06:31] LABS: Glucose 216 mg/dL (74-106)
--- NOTE | 2025-08-13 15:09 | DVHPN2 ---
Assessment/Plan Assessment/Plan progress note 59 M with IDDM, HTN, HLD, BPH severe spinal spondylosis s/p fusion, admitted for hyperglycemia and numbness concerning for HHS seen today. titrate insulin, pt might not go to recup. dc plan tomorrow physical exam aox3 comfortable on RA clear breath sounds s1 s2 rrr abdomen soft no LE edema inguinal erythema with satellite lesion labs ekg imaging reviewed assessment and plan IDDM w hyperglycemia ruled out DKA HHS UTI intertrig candidiasis hx of abscesses HTN HLD s/p spinal cerv fusion celulitis? gait disorder ruled out dvt, likely cvs basal bolus insulin start jonah Diflucan and clotrimazole PT ceft diet diabetic dvt ppx lovenox full code Plan discussed with: Patient My Orders Orders - JODI BYRD MD Procedure Category Date Status Time Gabapentin Capsule PHA 08/12/25 In Process (Neurontin Capsule) 22:00 Insulin Lantus PHA 08/12/25 In Process (Glargine) (Lantus) 22:00 Insulin Lispro PHA 08/13/25 In Process (Human) (Humalog) 07:00 * Dynamometer Tuner CONS 08/12/25 Transmitted Consult Rt Lower Dvt US 08/13/25 Taken 13:24 Date of Service: Aug 13, 2025 Billing Provider: JODI BYRD MD Common Visit Codes: [id number] INP/OBS CARE(HIGH) JODI BYRD MD Aug 13, 2025 15:09
--- NOTE | 2025-08-13 15:14 | DVH ---
RIGHT LOWER EXTREMITY VENOUS DUPLEX REASON FOR EXAMINATION: R/O DVT COMPARISON: US BILAT LOW EXT ART DUPLEX on DOS: 08/10/25, US BILAT LOWER DVT on DOS: 08/10/25, CT RT LOWER EXTREMITY W CON on DOS: 05/27/24 TECHNIQUE: Using real-time freeze-frame technique with a high-frequency transducer, multiple longitu dinal and transverse sections were obtained. Simultaneous color flow and spectral Doppler imaging wa s performed. FINDINGS: There is good visualization of the deep venous system with no intraluminal filling defects identified. Normal venous compressibility is seen and there is flow augmentation. Color flow Doppler imaging is unremarkable. There is a complex champagne's cyst in the popliteal fossa measuring approximately 4.5 x 3.0 x 1.8 cm. IMPRESSION: NO EVIDENCE OF DEEP VENOUS THROMBOSIS.
[2025-08-14] VITALS (7 sets, daily range): BP systolic 101–136; BP diastolic 55–90; PULSE 71–99; RESP 18–20; TEMP 97.5–98.2; O2SAT 97–100
[2025-08-14] MEDS: INSULIN LISPRO (HUMAN) 100 UNITS/ML ML SC SCH (11:05)
[2025-08-14] MEDS ORDERED: INSLISPI SC (11:49)
[2025-08-14] MEDS ORDERED: INSU-450 XX (11:49)
[2025-08-14] MEDS ORDERED: CLOT1CRE56 TOP (11:49)
[2025-08-14] MEDS ORDERED: ALCO70PA28 XX (11:49)
[2025-08-14] MEDS ORDERED: GAB100C PO (11:49)
[2025-08-14] MEDS ORDERED: LISI-275 PO (11:49)
[2025-08-14] MEDS ORDERED: GLUC1TES63 VI (11:49)
[2025-08-14] MEDS ORDERED: INSLANTI SC (11:49)
[2025-08-14] MEDS ORDERED: LANC-347 XX (11:49)
[2025-08-14] MEDS ORDERED: BLOO-200 XX (11:49)
--- NOTE | 2025-08-14 11:50 | DVHDS2 ---
Discharge Summary Date of Admission Aug 09, 2025 at 22:16 Date of Discharge: Aug 14, 2025 Labs/Diagnostic Data: Laboratory Results Test 08/14/25 10:38 08/13/25 05:36 08/11/25 07:10 08/10/25 04:05 POC Glucose 298 mg/dl (70-106) Sodium Level 137 mmol/L (136-145) Potassium Level 4.2 mmol/L (3.5-5.1) Chloride Level 101 mmol/L (98-107) Carbon Dioxide Level 26 mmol/L (20-31) Anion Gap 10 (5-15) Blood Urea Nitrogen 11 mg/dL (9-23) Creatinine 0.89 mg/dL (0.700-1.30) Glomerular Filtration Rate Calc 99 mL/min (>90) BUN/Creatinine Ratio 12.4 (10.0-20.0) Serum Glucose 216 mg/dL (74-106) Calcium Level 9.3 mg/dL (8.7-10.4) White Blood Count 5.0 10^3/uL (4.4-10.8) Red Blood Count 3.92 10^6/uL (4.5-5.90) Hemoglobin 11.2 g/dL (13.5-17.5) Hematocrit 32.8 % (41.0-53.0) Mean Corpuscular Volume 83.8 fL (80.0-100.0) Mean Corpuscular Hemoglobin 28.7 pg (28.0-32.0) Mean Corpuscular Hemoglobin Concent 34.3 g/dL (32.0-36.0) Red Cell Distribution Width 14.5 % (11.8-14.3) Platelet Count 105 10^3/uL (140-450) Mean Platelet Volume 8.9 fL (6.9-10.8) Neutrophils (%) (Auto) 56.9 % (37.0-80.0) Lymphocytes (%) (Auto) 26.1 % (10.0-50.0) Monocytes (%) (Auto) 8.4 % (0.0-12.0) Eosinophils (%) (Auto) 7.4 % (0.0-7.0) Basophils (%) (Auto) 1.2 % (0.0-2.0) Neutrophils # (Auto) 2.8 10 ^3/uL (1.6-8.6) Lymphocytes # (Auto) 1.3 10 ^3/uL (0.4-5.4) Monocytes # (Auto) 0.4 10 ^3/uL (0-1.3) Eosinophils # (Auto) 0.4 10 ^3/uL (0-0.8) Basophils # (Auto) 0.1 10 ^3/uL (0-0.2) Nucleated Red Blood Cells 0.0 % Prothrombin Time 9.7 sec (9.3-11.8) Prothrombin Time INR 0.91 (0.9-1.15) Activated Partial Thromboplast Time 25.1 SEC (24.5-34.5) Hemoglobin A1c 12.2 % A1C (<5.7) Lactic Acid Level 1.5 mmol/L (0.4-2.0) Phosphorus Level 2.6 mg/dL (2.4-5.1) Magnesium Level 1.8 mg/dL (1.6-2.6) Total Bilirubin 0.3 mg/dL (0.2-1.0) Aspartate Amino Transferase (AST) 18 U/L (13-40) Alanine Aminotransferase (ALT) < 9 U/L (7-40) Alkaline Phosphatase 136 U/L (46-116) Total Protein 6.3 g/dL (5.7-8.2) Albumin 3.7 g/dL (3.2-4.8) Triglycerides Level 158 mg/dL (< 150) Cholesterol Level 154 mg/dL (< 200) LDL Cholesterol 93 mg/dL (< 100) HDL Cholesterol 45 mg/dL (40-59) Lipase 80 U/L (12-53) Vitamin B12 Level 429 pg/mL (211-911) Vitamin D 25-Hydroxy 30.6 ng/mL (30.0-100) Thyroid Stimulating Hormone (TSH) 1.56 uIU/mL (0.55-4.78) Test 08/09/25 22:40 08/09/25 20:05 Blood Gas Specimen Type Arterial Blood Gas Sample Site Left radial Blood Gas Patient Temperature 37.0 Arterial Blood Date Drawn [id number] Arterial Blood pH 7.462 (7.350-7.450) Arterial Blood Partial Pressure CO2 33.3 mmHg (35.0-48.0) Arterial Blood Partial Pressure O2 81.7 mmHg (83.0-108.0) Arterial Blood HCO3 23.3 mmol/L (21.0-28.0) Arterial Blood Oxygen Saturation 96.0 % (94.0-98.0) Arterial Blood Base Excess 0.1 mmol/L (-2.0-3.0) Arterial Blood Oxyhemoglobin 94.9 % (94.0-98.0) Arterial Blood Carboxyhemoglobin 0.6 % (0.5-1.5) Arterial Blood Methemoglobin 0.5 % (0.0-1.5) Nolan Test Yes Blood Gas Total Hemoglobin 13.20 g/dL (13.5-17.5) Blood Gas Modality Room air Blood Gas Spontaneous Rate 20 FiO2 % 21.0 Serum Osmolality 311 mOsm/kg (278-298) Direct Bilirubin 0.2 mg/dL (<0.3) Beta-Hydroxybutyric Acid 0.159 mmol/L (< 0.4) Other Laboratory Tests 08/13/25 05:36 08/11/25 07:10 Final Diagnosis/Problems List hyperglycemia uncontrolled Discharge Disposition: Home Discharge Instruct/Medications Diet: Consistent carbohydrate, Cardiac 2g Na,low cholest Activity: No Restrictions, As Tolerated Medications: insulin insulin Scheduled Clotrimazole (Lotrimin), 1 APPLIC TOP Q12HR Gabapentin (Gabapentin), 300 MG PO TID Glucose Blood (Glucose Meter Test Strips), 1 MELVIN ACHS Insulin Glargine (Lantus), 25 UNITS SC HS Insulin Lispro (Human) (Humalog), 10 UNITS SC AC Lisinopril (Lisinopril), 5 MG PO DAILY Discontinued Medications Acetaminophen (Acetaminophen), 500 MG PO Q6HP, (Reported) Amoxicillin & Pot Clavulanate (Augmentin Tablet), 875 MG PO BID, (Reported) Cephalexin Monohydrate (Cephalexin), 1 CAP PO BID, (Reported) Gabapentin (Gabapentin), 1 CAP PO TID, (Reported) Insulin Lispro (Insulin Lispro Kwikpen), 1 UNIT SC AC, (Reported) Ketoconazole (Ketoconazole), 1 APPLIC TOP BID PRN for FOR ITCHING, (Reported) Meclizine Hcl (Meclizine Hcl), 25 MG PO TIDP PRN for DIZZINESS, (Reported) Methocarbamol (Methocarbamol), 500 MG PO Q8HP PRN for FOR MUSCLE SPASM, (Reported) Naproxen (Naproxen), 500 MG PO BIDPC Durable Medical Equipment Blood Glucose Monitoring Suppl (Blood Glucose Monitoring W/Device), KIT XX UD, (DME) Insulin Pen Needle (Fifty50 [place] 31G X), 16 XX ACHS, (DME) Isopropyl Alcohol (Alcohol Prep Pad), % XX ACHS, (DME) Lancets (Freestyle Lancets), UNIT XX ACHS, (DME) Discharge Statement: "Patient was advised to return to the ER or call 911 if any headaches, dizziness, shortness of breath, chest pain, abdominal pain, bleeding, fevers, or worsening of medical condition. Patient was counseled about treatment plan, medications, possible side effects, patientverbalized understanding. All questions were answered to the best of my ability. This discharge took greater then 30 minutes in planning, reviewing documentation, counseling the patient, and discussing with other team members." ASSESSMENT ASSESSMENT Assessment hyperglycemia uncontrolled Date of Service: Aug 14, 2025 Billing Provider: JODI BYRD MD Common Visit Codes: [id number]/[id number] DISCH DAY >30min JODI BYRD MD Aug 14, 2025 11:50
[2025-08-14] MEDS: INSULIN LANTUS (GLARGINE) 1 /0.01ml (100units/ml) SC SCH (21:56)
[2025-08-15 09:00] VITALS: BP 116/67; PULSE 76; RESP 20; TEMP 98.5; O2SAT 98
[2025-08-15] MEDS: INSULIN LISPRO (HUMAN) 100 UNITS/ML ML SC SCH (11:06)
--- NOTE | 2025-08-15 14:13 | DVHDS2 ---
Discharge Summary Date of Admission Aug 09, 2025 at 22:16 Date of Discharge: Aug 15, 2025 Labs/Diagnostic Data: Laboratory Results Test 08/15/25 10:47 08/13/25 05:36 08/11/25 07:10 08/10/25 04:05 POC Glucose 210 mg/dl (70-106) Sodium Level 137 mmol/L (136-145) Potassium Level 4.2 mmol/L (3.5-5.1) Chloride Level 101 mmol/L (98-107) Carbon Dioxide Level 26 mmol/L (20-31) Anion Gap 10 (5-15) Blood Urea Nitrogen 11 mg/dL (9-23) Creatinine 0.89 mg/dL (0.700-1.30) Glomerular Filtration Rate Calc 99 mL/min (>90) BUN/Creatinine Ratio 12.4 (10.0-20.0) Serum Glucose 216 mg/dL (74-106) Calcium Level 9.3 mg/dL (8.7-10.4) White Blood Count 5.0 10^3/uL (4.4-10.8) Red Blood Count 3.92 10^6/uL (4.5-5.90) Hemoglobin 11.2 g/dL (13.5-17.5) Hematocrit 32.8 % (41.0-53.0) Mean Corpuscular Volume 83.8 fL (80.0-100.0) Mean Corpuscular Hemoglobin 28.7 pg (28.0-32.0) Mean Corpuscular Hemoglobin Concent 34.3 g/dL (32.0-36.0) Red Cell Distribution Width 14.5 % (11.8-14.3) Platelet Count 105 10^3/uL (140-450) Mean Platelet Volume 8.9 fL (6.9-10.8) Neutrophils (%) (Auto) 56.9 % (37.0-80.0) Lymphocytes (%) (Auto) 26.1 % (10.0-50.0) Monocytes (%) (Auto) 8.4 % (0.0-12.0) Eosinophils (%) (Auto) 7.4 % (0.0-7.0) Basophils (%) (Auto) 1.2 % (0.0-2.0) Neutrophils # (Auto) 2.8 10 ^3/uL (1.6-8.6) Lymphocytes # (Auto) 1.3 10 ^3/uL (0.4-5.4) Monocytes # (Auto) 0.4 10 ^3/uL (0-1.3) Eosinophils # (Auto) 0.4 10 ^3/uL (0-0.8) Basophils # (Auto) 0.1 10 ^3/uL (0-0.2) Nucleated Red Blood Cells 0.0 % Prothrombin Time 9.7 sec (9.3-11.8) Prothrombin Time INR 0.91 (0.9-1.15) Activated Partial Thromboplast Time 25.1 SEC (24.5-34.5) Hemoglobin A1c 12.2 % A1C (<5.7) Lactic Acid Level 1.5 mmol/L (0.4-2.0) Phosphorus Level 2.6 mg/dL (2.4-5.1) Magnesium Level 1.8 mg/dL (1.6-2.6) Total Bilirubin 0.3 mg/dL (0.2-1.0) Aspartate Amino Transferase (AST) 18 U/L (13-40) Alanine Aminotransferase (ALT) < 9 U/L (7-40) Alkaline Phosphatase 136 U/L (46-116) Total Protein 6.3 g/dL (5.7-8.2) Albumin 3.7 g/dL (3.2-4.8) Triglycerides Level 158 mg/dL (< 150) Cholesterol Level 154 mg/dL (< 200) LDL Cholesterol 93 mg/dL (< 100) HDL Cholesterol 45 mg/dL (40-59) Lipase 80 U/L (12-53) Vitamin B12 Level 429 pg/mL (211-911) Vitamin D 25-Hydroxy 30.6 ng/mL (30.0-100) Thyroid Stimulating Hormone (TSH) 1.56 uIU/mL (0.55-4.78) Test 08/09/25 22:40 08/09/25 20:05 Blood Gas Specimen Type Arterial Blood Gas Sample Site Left radial Blood Gas Patient Temperature 37.0 Arterial Blood Date Drawn [id number] Arterial Blood pH 7.462 (7.350-7.450) Arterial Blood Partial Pressure CO2 33.3 mmHg (35.0-48.0) Arterial Blood Partial Pressure O2 81.7 mmHg (83.0-108.0) Arterial Blood HCO3 23.3 mmol/L (21.0-28.0) Arterial Blood Oxygen Saturation 96.0 % (94.0-98.0) Arterial Blood Base Excess 0.1 mmol/L (-2.0-3.0) Arterial Blood Oxyhemoglobin 94.9 % (94.0-98.0) Arterial Blood Carboxyhemoglobin 0.6 % (0.5-1.5) Arterial Blood Methemoglobin 0.5 % (0.0-1.5) Nolan Test Yes Blood Gas Total Hemoglobin 13.20 g/dL (13.5-17.5) Blood Gas Modality Room air Blood Gas Spontaneous Rate 20 FiO2 % 21.0 Serum Osmolality 311 mOsm/kg (278-298) Direct Bilirubin 0.2 mg/dL (<0.3) Beta-Hydroxybutyric Acid 0.159 mmol/L (< 0.4) Other Laboratory Tests 08/13/25 05:36 08/11/25 07:10 Final Diagnosis/Problems List hyperglycemia uncontrolled Discharge Disposition: Home Discharge Instruct/Medications Diet: Consistent carbohydrate, Cardiac 2g Na,low cholest Activity: No Restrictions, As Tolerated Medications: insulin insulin Scheduled Clotrimazole (Lotrimin), 1 APPLIC TOP Q12HR Gabapentin (Gabapentin), 300 MG PO TID Glucose Blood (Glucose Meter Test Strips), 1 MELVIN ACHS Insulin Glargine (Lantus), 25 UNITS SC HS Insulin Lispro (Human) (Humalog), 10 UNITS SC AC Lisinopril (Lisinopril), 5 MG PO DAILY Discontinued Medications Acetaminophen (Acetaminophen), 500 MG PO Q6HP, (Reported) Amoxicillin & Pot Clavulanate (Augmentin Tablet), 875 MG PO BID, (Reported) Cephalexin Monohydrate (Cephalexin), 1 CAP PO BID, (Reported) Gabapentin (Gabapentin), 1 CAP PO TID, (Reported) Insulin Lispro (Insulin Lispro Kwikpen), 1 UNIT SC AC, (Reported) Ketoconazole (Ketoconazole), 1 APPLIC TOP BID PRN for FOR ITCHING, (Reported) Meclizine Hcl (Meclizine Hcl), 25 MG PO TIDP PRN for DIZZINESS, (Reported) Methocarbamol (Methocarbamol), 500 MG PO Q8HP PRN for FOR MUSCLE SPASM, (Reported) Naproxen (Naproxen), 500 MG PO BIDPC Durable Medical Equipment Blood Glucose Monitoring Suppl (Blood Glucose Monitoring W/Device), KIT XX UD, (DME) Insulin Pen Needle (Fifty50 [place] 31G X), 16 XX ACHS, (DME) Isopropyl Alcohol (Alcohol Prep Pad), % XX ACHS, (DME) Lancets (Freestyle Lancets), UNIT XX ACHS, (DME) Discharge Statement: "Patient was advised to return to the ER or call 911 if any headaches, dizziness, shortness of breath, chest pain, abdominal pain, bleeding, fevers, or worsening of medical condition. Patient was counseled about treatment plan, medications, possible side effects, patientverbalized understanding. All questions were answered to the best of my ability. This discharge took greater then 30 minutes in planning, reviewing documentation, counseling the patient, and discussing with other team members." ASSESSMENT ASSESSMENT Assessment hyperglycemia uncontrolled Date of Service: Aug 15, 2025 Billing Provider: JODI BYRD MD Common Visit Codes: [id number] DISCH DAY >30min JODI BYRD MD Aug 15, 2025 14:13
--- NOTE | 2025-08-15 14:14 | DVHPN2 ---
Assessment/Plan Assessment/Plan progress note 59 M with IDDM, HTN, HLD, BPH severe spinal spondylosis s/p fusion, admitted for hyperglycemia and numbness concerning for HHS seen today. dc to recup care. physical exam aox3 comfortable on RA clear breath sounds s1 s2 rrr abdomen soft no LE edema inguinal erythema with satellite lesion labs ekg imaging reviewed assessment and plan IDDM w hyperglycemia ruled out DKA HHS UTI intertrig candidiasis hx of abscesses HTN HLD s/p spinal cerv fusion celulitis? gait disorder ruled out dvt, likely cvs basal bolus insulin start jonah Diflucan and clotrimazole PT ceft diet diabetic dvt ppx lovenox full code Plan discussed with: Patient My Orders Orders - JODI BYRD MD Procedure Category Date Status Time Insulin Lispro PHA 08/15/25 In Process (Human) (Humalog) 11:30 Discharge DISCHARGE 08/15/25 Transmitted 10:39 Date of Service: Aug 14, 2025 Billing Provider: JODI BYRD MD Common Visit Codes: [id number] INP/OBS CARE(HIGH) JODI BYRD MD Aug 15, 2025 14:14
== END 2025-08-15 15:30 | disposition home or self-care (01) | DRG 48 ==
LOC: ER 19:21 → EDBD 19:21 → OVERFLOW 22:16 → TELE-CENTR 08-10 12:26 → CENTRAL 08-14 10:48
PROVIDERS: ADMIT Student in an Organized Health Care Education/Training Program; ATTEND Student in an Organized Health Care Education/Training Program
DX: E11.43 Type 2 diabetes mellitus with diabetic autonomic (poly)neuropathy (principal); Z59.00 Homelessness unspecified; E11.65 Type 2 diabetes mellitus with hyperglycemia; B37.9 Candidiasis, unspecified; B35.4 Tinea corporis; E78.5 Hyperlipidemia, unspecified; G89.29 Other chronic pain; L03.818 Cellulitis of other sites; N39.0 Urinary tract infection, site not specified; I10 Essential (primary) hypertension; N40.0 Benign prostatic hyperplasia without lower urinary tract symptoms; Z91.148 Patient's other noncompliance with medication regimen for other reason; Z98.1 Arthrodesis status; Z79.4 Long term (current) use of insulin; Z79.899 Other long term (current) drug therapy
CPT/HCPCS: 36415; 36600; 71045; 73562; 80048; 80053; 80061; 80076; 82010; 82306; 82607; 82805; 82962; 83036; 83605; 83690; 83735; 83930; 84100; 84443; 85025; 85610; 85730; 87040; 93886; 93925; 93970; 93971; 96360; 97116; 97163; 97530; G0378; J1815; J3480; J3490